=== PATIENT | female | born 1975 | race Caucasian/White ===

== ENCOUNTER 2020-04-25 15:06 | Emergency (ER) | payer OTHER ==
[2020-04-25 17:00] LABS: RED BLOOD COUNT 5.37 M/UL (4.00-5.10); WHITE BLOOD COUNT 9.8 K/UL (4.5-11.0)
[2020-04-25 17:25] LABS: BUN/CREATININE RATIO 20 (0-10)
== END 2020-04-25 19:09 | disposition home or self-care (01) ==
LOC: ER1 15:06
PROVIDERS: Family Medicine
DX: F41.9 Anxiety disorder, unspecified (principal); R07.9 Chest pain, unspecified; F17.210 Nicotine dependence, cigarettes, uncomplicated
CPT/HCPCS: 36415; 80053; 82550; 82553; 83874; 84484; 85025; 93005; 99285